=== PATIENT | female | born 1990 | race African-American/Black ===

== ENCOUNTER → 2017-05-17 | Outpatient (CLI) | payer MEDICAID ==
--- NOTE | 2017-05-17 14:58 | RADIOLOGY REPORT (SQ) ---
EXAM DESCRIPTION: L SPINE 2 VIEWS COMPLETED DATE/TIME: 05/17/2017 2:47 pm REASON FOR STUDY: M54.5 LOW BACK PAIN M54.5 LOW BACK PAIN COMPARISON: None. NUMBER OF VIEWS: Two views. TECHNIQUE: AP and lateral radiographic images acquired of the lumbar spine. LIMITATIONS: None. FINDINGS: MINERALIZATION: Normal. SEGMENTATION: Normal. No transitional anatomy. ALIGNMENT: Normal. VERTEBRAE: Maintained height. No fracture or worrisome bone lesion. DISCS: Preserved height. No significant osteophytes or end plate irregularity. POSTERIOR ELEMENTS: Pedicles and facets are intact. No pars defect or posterior arch defects. HARDWARE: None in the spine. PARASPINAL SOFT TISSUES: Normal. PELVIS: Intact as visualized. No fractures or worrisome bone lesions. SI joints intact. OTHER: No other significant finding. IMPRESSION: NORMAL 2 VIEW LUMBAR SPINE. TECHNICAL DOCUMENTATION: JOB ID: [id number]- All Rights Reserved
== END ==
LOC: RAD 13:52
PROVIDERS: ATTEND Physician Assistant
DX: M54.5 Low back pain (principal)
CPT/HCPCS: 72100

== ENCOUNTER 2018-03-08 14:04 | Emergency (ER) | payer MEDICAID ==
--- NOTE | 2018-03-08 14:46 | ER Document Report ---
ED General - General Stated Complaint: POSSIBLE SYNCOPE Time Seen by Provider: 03/08/18 14:31 TRAVEL OUTSIDE OF THE [place] IN LAST 30 DAYS: No - HPI Notes: Patient is a 28-year-old female at 31 weeks gestational age that presents to the emergency department for chief complaint of syncope. Patient states she was in a store today and began feeling lightheaded. She then felt sweaty and started to have tunnel vision. She started to lean against a family member and then had a full syncopal event. Family member states that she went limp in his arms and he lowered her down to the ground. When she was lying flat on the ground she woke back up. She did not fall or have any injuries during this event. Currently patient states she feels normal and has no complaints. She states she has had similar episodes in the past with a with her son. She denies any chest pain, shortness of breath, palpitations, recent fevers, vaginal bleeding, vaginal discharge, abdominal cramping/contractions, pelvic pain, headache and vision changes. Past Medical History: Negative Past Surgical History: Negative Social History: Denies drugs alcohol and tobacco Family History: Reviewed and noncontributory for presenting illness Allergies: Reviewed, see documented allergy list. REVIEW OF SYSTEMS: CONSTITUTIONAL : No fever No chills No diaphoresis No recent illness EENT: Tunnel vision No congestion No sore throat CARDIOVASCULAR: No chest pain No palpitations Syncope RESPIRATORY: No shortness of breath No cough No difficulty breathing GASTROINTESTINAL: No abdominal pain No nausea No vomiting No diarrhea GENITOURINARY: No dysuria No hematuria No difficulty urinating MUSCULOSKELETAL: No back pain No leg pain No arm pain SKIN: No rashes No lesions LYMPHATIC: No swollen, enlarged glands. NEUROLOGICAL: No lightheadedness No headache No weakness No paresthesias PSYCHIATRIC: No anxiety No depression PHYSICAL EXAMINATION: Vital signs reviewed, nursing noted reviewed. GENERAL: Well-appearing, well-nourished and in no acute distress. HEAD: Atraumatic, normocephalic. EYES: Eyes appear normal, extraocular movements intact, sclera anicteric, conjunctiva are normal. ENT: nares patent, oropharynx clear without exudates. Moist mucous membranes. NECK: Normal range of motion, supple without lymphadenopathy LUNGS: Breath sounds clear to auscultation bilaterally and equal. No wheezes rales or rhonchi. HEART: Regular rate and rhythm without murmurs ABDOMEN: Soft, nontender, normoactive bowel sounds. No rebound, guarding, or rigidity. Gravid uterus palpated inferior to xiphoid process EXTREMITIES: Nontender, good range of motion, no pitting or edema. NEUROLOGICAL: No focal neurological deficits. Moves all extremities spontaneously Motor and sensory grossly intact on exam. PSYCH: Normal mood, normal affect. SKIN: Warm, Dry, normal turgor, no rashes or lesions noted on exposed skin - Related Data Allergies/Adverse Reactions: red dye Allergy (Severe, Verified 05/18/16 10:03) Past Medical History - Social History Smoking Status: Never Smoker Family History: Reviewed & Not Pertinent Renal/ Medical History: Reports: Hx Ovarian Cysts - PCOS - Immunizations Hx Diphtheria, Pertussis, Tetanus Vaccination: Yes Review of Systems - Review of Systems Notes: Dictated Physical Exam - Notes Notes: Dictated Course - Re-evaluation Re-evalutation: 03/08/18 14:43 Vitals reviewed. Patient awake with no symptoms currently. I recommended blood work, chest x-ray, EKG and heart tones for workup of her syncopal episode. Patient does not wish to have any workup at this time. I did convince her to at least let us obtain an EKG and heart tones. I advised her to be admitted to the hospital for telemetry monitoring after her syncopal event since she completely lost consciousness. I also advised allowing me to discuss her care with on-call [facility] so they would be able to evaluate the baby and possibly obtain NST. Patient does not want me to talk to [facility] and does not want to be admitted to the hospital. The patient has chosen to leave the facility against medical advice. The relevant issues have been reviewed and discussed with the patient and family at the bedside. At the time of this assessment there is no indication for involuntary commitment. The patient is alert, oriented, and able to express clearly their reasoning for not wanting to remain in the emergency department for further treatment. The patient is not clinically psychotic, intoxicated, and denies and suicidal ideation. Differential or suspected diagnoses based on medical screening exam: Syncope and dysrhythmia The patient is aware of the concerning diagnoses and acknowledges understanding of the reasons for the following recommendations: Admission to the hospital The following recommendations/services were offered and refused: Admission to the hospital, blood work, chest x-ray, and [facility] evaluation The following risks were explained: , permanent disability, loss of function, injury or to fetus Clinical impression: Patient is competent to make decisions regarding the medical that is being offered. 03/08/18 15:15 Patient now refusing heart tones and EKG. She states she feels fine and is leaving the emergency room. She left prior to receiving any discharge paperwork. Discharge - Discharge Clinical Impression: Syncope Qualifiers: Syncope type: unspecified Qualified Code(s): R55 - Syncope and collapse Condition: Stable Disposition: AGAINST MEDICAL ADVICE Additional Instructions: Follow-up with your [facility] for reevaluation in 1 day. Return to the emergency room at any point in time for further evaluation and workup. Increase hydration by drinking more water. If you begin to feel lightheaded lay flat on the ground to prevent further passing out. Referrals: DIAZ MEDLEY CNM [Primary Care Provider] - Follow up as needed
[2018-03-08 15:24] VITALS: BP 100/55
== END 2018-03-08 15:08 | disposition left against medical advice (07) ==
LOC: ER 14:04
DX: O26.893 Other specified pregnancy related conditions, third trimester (principal); R55 Syncope and collapse; Z3A.31 31 weeks gestation of pregnancy; Z91.048 Other nonmedicinal substance allergy status; Z53.20 Procedure and treatment not carried out because of patient's decision for unspecified reasons
CPT/HCPCS: 99284

== ENCOUNTER 2018-05-25 10:59 | Emergency (ER) | payer MEDICAID, OTHER ==
--- NOTE | 2018-05-25 11:26 | ER Document Report ---
ED Medical Screen (RME) - General Chief Complaint: Abdominal Pain Stated Complaint: STOMACH PAIN Time Seen by Provider: 05/25/18 11:20 Notes: 28 years old female who is 8 days presents today with sudden onset of right upper quadrant pain, while eating her cereal. She is breast-feeding. No fever chills or other constitutional symptoms. Right upper quadrant tenderness TRAVEL OUTSIDE OF THE [place] IN LAST 30 DAYS: No - Related Data Allergies/Adverse Reactions: red dye Allergy (Severe, Verified 05/25/18 11:00) Past Medical History - Social History Frequency of alcohol use: None Drug Abuse: None Renal/ Medical History: Reports: Hx Ovarian Cysts - PCOS. Denies: Hx Peritoneal Dialysis - Immunizations Hx Diphtheria, Pertussis, Tetanus Vaccination: Yes Physical Exam - Vital signs Vitals: Temp Pulse Resp BP Pulse Ox 98.2 F 66 14 132/78 H 98 05/25/18 11:02 05/25/18 11:02 05/25/18 11:02 05/25/18 11:02 05/25/18 11:02 Course - Vital Signs Vital signs: Temp Pulse Resp BP Pulse Ox 98.2 F 66 14 132/78 H 98 05/25/18 11:02 05/25/18 11:02 05/25/18 11:02 05/25/18 11:02 05/25/18 11:02 Doctor's Discharge - Discharge Referrals: DIAZ MEDLEY CNM [Primary Care Provider] - Follow up as needed
[2018-05-25 11:50] LABS: ABSOLUTE BASOPHILS # (AUTO) 0.1 10^3/uL (0.0-0.2); ABSOLUTE EOSINOPHILS # (AUTO) 0.1 10^3/uL (0.0-0.6); ABSOLUTE LYMPHOCYTES (AUTO) 1.8 10^3/uL (0.5-4.7); ABSOLUTE MONOCYTES (AUTO) 0.6 10^3/uL (0.1-1.4); ABSOLUTE NEUT (AUTO) 6.3 10^3/uL (1.7-8.2); BASOPHILS % (AUTO) 1.3 % (0-2); EOSINOPHILS % (AUTO) 1.6 % (0-6); HEMATOCRIT 32.1 % (36.0-47.0); HEMOGLOBIN 10.5 g/dL (12.0-15.5); LYMPHOCYTES % (AUTO) 20.1 % (13-45); MEAN CORPUSCULAR HEMOGLOBIN 25.3 pg (27.0-33.4); MEAN CORPUSCULAR HGB CONC 32.9 g/dL (32.0-36.0); MEAN CORPUSCULAR VOLUME 77 fl (80-97); MONOCYTES % (AUTO) 7.1 % (3-13); PLATELET COUNT 466 10^3/uL (150-450); RED BLOOD COUNT 4.16 10^6/uL (3.72-5.28); SEGMENTED NEUTROPHILS % (AUTO) 69.9 % (42-78); TOTAL CELLS COUNTED % (AUTO) 100 %
--- NOTE | 2018-05-25 12:19 | RADIOLOGY REPORT (SQ) ---
EXAM DESCRIPTION: U/S ABDOMEN LIMITED W/O DOP COMPLETED DATE/TIME: 05/25/2018 11:53 am REASON FOR STUDY: Abdominal pain .rule out cholecystitis COMPARISON: None. TECHNIQUE: Dynamic and static grayscale images acquired of the abdomen and recorded on PACS. Additio nal selected color Doppler and spectral images recorded. LIMITATIONS: None. FINDINGS: PANCREAS: No masses. Visualized pancreatic duct normal caliber. LIVER: No masses. Normal echogenicity. LIVER VASCULATURE: Normal directional flow of the main portal vein and hepatic veins. GALLBLADDER: No stones. Normal wall thickness. No pericholecystic fluid. ULTRASOUND-DETECTED ROSALES'S SIGN: Negative. INTRAHEPATIC DUCTS AND COMMON DUCT: CBD and intrahepatic ducts normal caliber. No filling defects. INFERIOR VENA CAVA: Normal flow. AORTA: No aneurysm. RIGHT KIDNEY: Normal size. Normal echogenicity. No solid or suspicious masses. No hydronephrosis. No calcifications. PERITONEAL AND RIGHT PLEURAL SPACE: No ascites or effusions. OTHER: No other significant findings. IMPRESSION: No ultrasound abnormality of the right upper quadrant to explain abdominal pain. No hilary dence of gallstones or acute cholecystitis. Consider CT to further evaluate unexplained abdominal pa in. TECHNICAL DOCUMENTATION: JOB ID: [id number] [employer]- All Rights Reserved Reading location - IP/workstation name: [email or web address]
--- NOTE | 2018-05-25 12:56 | ER Document Report ---
ED General - General Chief Complaint: Abdominal Pain Stated Complaint: STOMACH PAIN Time Seen by Provider: 05/25/18 11:20 Notes: Patient is a 28-year-old female that presents to the emergency department for chief complaint of right-sided abdominal pain. Patient recently had a successful and unremarkable vaginal delivery about 8 days ago, today she woke up with a sharp pain in her right side, in the right upper quadrant in the right flank, it had dissipated over the course of today, and then came back again very sharp, which she described at the time as a 9 out of 10, so she decided come to the emergency department to have this evaluated. The symptoms have since dissipated again, she states she has a mild ache in the right upper quadrant and right flank, denies any fevers, chills, night sweats, nausea, vomiting, dysuria or hematuria. Past Medical History: Denies chronic medical conditions Past Surgical History: Denies surgical history Social History: Denies tobacco, alcohol or drug use. Family History: Reviewed and noncontributory for presenting illness Allergies: Reviewed, see documented allergy list. REVIEW OF SYSTEMS: Other than noted above, the 12 point review of systems was reviewed with the patient and were negative, all pertinent findings are included in the HPI. PHYSICAL EXAMINATION: Vital signs reviewed, nursing noted reviewed. GENERAL: Well-appearing, well-nourished and in no acute distress. HEAD: Atraumatic, normocephalic. EYES: Eyes appear normal, extraocular movements intact, sclera anicteric, conjunctiva are normal. ENT: nares patent, oropharynx clear without exudates. Moist mucous membranes. NECK: Normal range of motion, supple without lymphadenopathy LUNGS: Breath sounds clear to auscultation bilaterally and equal. No wheezes rales or rhonchi. HEART: Regular rate and rhythm without murmurs ABDOMEN: Soft, mild right upper quadrant discomfort with palpation, no CVA tenderness, normoactive bowel sounds. No rebound, guarding, or rigidity. No masses appreciated. EXTREMITIES: Nontender, good range of motion, no pitting or edema. NEUROLOGICAL: No focal neurological deficits. Moves all extremities spontaneously Motor and sensory grossly intact on exam. PSYCH: Normal mood, normal affect. SKIN: Warm, Dry, normal turgor, no rashes or lesions noted on exposed skin TRAVEL OUTSIDE OF THE [place] IN LAST 30 DAYS: No - Related Data Allergies/Adverse Reactions: red dye Allergy (Severe, Verified 05/25/18 11:00) Past Medical History - Social History Smoking Status: Never Smoker Frequency of alcohol use: None Drug Abuse: None Family History: Reviewed & Not Pertinent Patient has suicidal ideation: No Patient has homicidal ideation: No Renal/ Medical History: Reports: Hx Ovarian Cysts - PCOS. Denies: Hx Peritoneal Dialysis - Immunizations Hx Diphtheria, Pertussis, Tetanus Vaccination: Yes Physical Exam - Vital signs Vitals: Temp Pulse Resp BP Pulse Ox 98.2 F 66 14 132/78 H 98 05/25/18 11:02 05/25/18 11:02 05/25/18 11:02 05/25/18 11:02 05/25/18 11:02 Course - Re-evaluation Re-evalutation: Patient seen and examined vital signs reviewed. Laboratory data and imaging were ordered as appropriate for the patient's presenting symptoms and complaint, with consideration of any critical or life threatening conditions that may be associated with their obtained history and exam as noted above. Results were reviewed when available and demonstrated unremarkable blood work with the exception of a mild anemia, which is expected ., No indication for transfusion at this time hemoglobin was over 10. Urinalysis had some blood, contaminant from recent still having some vaginal bleeding, she had some leukocyte esterase, which she could possibly have a UTI, with her symptoms presenting, could also be pain, as the uterus is shrinking, regardless we will treat her for UTI, with Keflex for 5 days, and have her follow-up with [facility] she is advised if her symptoms worsen or do not improve to return immediately to the emergency department. On reevaluation the patient's pain was completely resolved. Evaluation was most consistent with right flank pain, UTI. Results were discussed with the patient at this point, after careful consideration I feel that that patient can be discharged from the emergency department, the patient was educated treatments and reasons to return to the emergency department based on their presumed diagnosis as noted above, they were advised to followup with a primary care physician in 2-3 days. Patient was agreeable to plan of care. Laboratory 05/25/18 05/25/18 05/25/18 11:31 11:31 13:26 WBC 9.0 RBC 4.16 Hgb 10.5 L Hct 32.1 L MCV 77 L MCH 25.3 L MCHC 32.9 RDW 17.0 H Plt Count 466 H Seg Neutrophils % 69.9 Lymphocytes % 20.1 Monocytes % 7.1 Eosinophils % 1.6 Basophils % 1.3 Absolute Neutrophils 6.3 Absolute Lymphocytes 1.8 Absolute Monocytes 0.6 Absolute Eosinophils 0.1 Absolute Basophils 0.1 Sodium Cancelled 140.2 Potassium Cancelled 4.4 Chloride Cancelled 107 Carbon Dioxide Cancelled 23 Anion Gap Cancelled 10 BUN Cancelled 10 Creatinine Cancelled 0.62 Est GFR ( Amer) Cancelled > 60 Est GFR (Non-Af Amer) Cancelled > 60 Glucose Cancelled 71 L Calcium Cancelled 9.1 Total Bilirubin Cancelled 1.1 Direct Bilirubin Cancelled 0.2 Neonat Total Bilirubin Cancelled Not Reportable Neonat Direct Bilirubin Cancelled Not Reportable Neonat Indirect Bili Cancelled Not Reportable AST Cancelled 37 H ALT Cancelled 39 Alkaline Phosphatase Cancelled 88 Total Protein Cancelled 7.0 Albumin Cancelled 3.9 Urine Color Urine Appearance Urine pH Ur Specific [place] Urine Protein Urine Glucose (UA) Urine Ketones Urine Blood Urine Nitrite Urine Bilirubin Urine Urobilinogen Ur Leukocyte Esterase Urine WBC (Auto) Urine RBC (Auto) Urine Bacteria (Auto) Squamous Epi Cells Auto Urine Ascorbic Acid 05/25/18 14:34 WBC RBC Hgb Hct MCV MCH MCHC RDW Plt Count Seg Neutrophils % Lymphocytes % Monocytes % Eosinophils % Basophils % Absolute Neutrophils Absolute Lymphocytes Absolute Monocytes Absolute Eosinophils Absolute Basophils Sodium Potassium Chloride Carbon Dioxide Anion Gap BUN Creatinine Est GFR ( Amer) Est GFR (Non-Af Amer) Glucose Calcium Total Bilirubin Direct Bilirubin Neonat Total Bilirubin Neonat Direct Bilirubin Neonat Indirect Bili AST ALT Alkaline Phosphatase Total Protein Albumin Urine Color COLORLESS Urine Appearance CLEAR Urine pH 6.0 Ur Specific [place] 1.002 Urine Protein NEGATIVE Urine Glucose (UA) NEGATIVE Urine Ketones NEGATIVE Urine Blood LARGE H Urine Nitrite NEGATIVE Urine Bilirubin NEGATIVE Urine Urobilinogen NEGATIVE Ur Leukocyte Esterase MODERATE H Urine WBC (Auto) 4 Urine RBC (Auto) 0 Urine Bacteria (Auto) TRACE Squamous Epi Cells Auto <1 Urine Ascorbic Acid NEGATIVE Abdomen Ultrasound 05/25/18 11:23 IMPRESSION: No ultrasound abnormality of the right upper quadrant to explain abdominal pain. No evidence of gallstones or acute cholecystitis. Consider CT to further evaluate unexplained abdominal pain. - Vital Signs Vital signs: Temp Pulse Resp BP Pulse Ox 98.4 F 66 13 126/78 H 99 05/25/18 15:52 05/25/18 15:52 05/25/18 15:52 05/25/18 15:52 05/25/18 15:52 - Laboratory Result Diagrams: 05/25/18 11:31 05/25/18 13:26 Laboratory results interpreted by me: 05/25/18 05/25/18 05/25/18 11:31 13:26 14:34 Hgb 10.5 L Hct 32.1 L MCV 77 L MCH 25.3 L RDW 17.0 H Plt Count 466 H Glucose 71 L AST 37 H Urine Blood LARGE H Ur Leukocyte Esterase MODERATE H Discharge - Discharge Clinical Impression: Flank pain UTI (urinary tract infection) Qualifiers: Urinary tract infection type: site unspecified Hematuria presence: with hematuria Qualified Code(s): N39.0 - Urinary tract infection, site not specified ; R31.9 - Hematuria, unspecified; R31.9 - Hematuria, unspecified Condition: Stable Disposition: HOME, SELF-CARE Instructions: Urinary Tract Infection ([facility]) Prescriptions: Cephalexin Monohydrate [Keflex 500 mg Capsule] 500 mg PO Q12H 5 Days #10 capsule Referrals: DIAZ MEDLEY CNM [Primary Care Provider] - Follow up as needed
[2018-05-25 13:52] LABS: ALANINE AMINOTRANSFERASE 39 U/L (9-52); ALBUMIN 3.9 g/dL (3.5-5.0); ALKALINE PHOSPHATASE 88 U/L (38-126); ANION GAP 10 (5-19); ASPARTATE AMINO TRANSFERASE 37 U/L (14-36); BILIRUBIN,DIRECT 0.2 mg/dL (0.0-0.4); BILIRUBIN,TOTAL 1.1 mg/dL (0.2-1.3); BLOOD UREA NITROGEN 10 mg/dL (7-20); CALCIUM 9.1 mg/dL (8.4-10.2); CARBON DIOXIDE 23 mmol/L (22-30); CHLORIDE 107 mmol/L (98-107); GLUCOSE 71 mg/dL (75-110); POTASSIUM 4.4 mmol/L (3.6-5.0); SODIUM 140.2 mmol/L (137-145)
[2018-05-25 15:03] LABS: APPEARANCE,URINE CLEAR; BILIRUBIN,URINE NEGATIVE (NEGATIVE); COLOR,URINE COLORLESS; GLUCOSE, URINE NEGATIVE (NEGATIVE); KETONES,URINE NEGATIVE (NEGATIVE); LEUKOCYTE ESTERASE,URINE MODERATE (NEGATIVE); NITRITE,URINE NEGATIVE (NEGATIVE); PROTEIN,URINE NEGATIVE (NEGATIVE); URINE SPECIFIC GRAVITY 1.002; UROBILINOGEN,URINE NEGATIVE mg/dL (<2.0)
[2018-05-25 15:55] VITALS: BP 126/78
== END 2018-05-25 15:54 | disposition home or self-care (01) ==
LOC: ER 10:59
DX: N39.0 Urinary tract infection, site not specified (principal); R31.9 Hematuria, unspecified; R10.9 Unspecified abdominal pain
CPT/HCPCS: 36415; 76705; 80053; 81001; 85025; 87086; 87088; 87186; 99284